=== PATIENT | female | born 1960 | race Caucasian/White ===

== ENCOUNTER → 2021-12-29 10:57 | Outpatient (CLI) | payer BC, SELFPAY ==
--- NOTE | ~2021-12-29 | XR_ITS ---
XR UGIAC w kub DATE: 12/29/2021 13:37 INDICATION: Gastroesophageal reflux TECHNIQUE: Air-contrast upper gastrointestinal series 1.9 minutes fluoroscopy time DAP 13.302 122 total images COMPARISON: None FINDINGS: There is normal deglutition and esophageal peristalsis. No stricture, mucosal fold thickeni ng, erosion, ulceration or intraluminal mass lesion of the esophagus, stomach or duodenum is detected . The proximal small bowel mucosal pattern appears normal. IMPRESSION: Normal examination Reviewed, dictated and finalized at [facility]. Reviewed, dictated and finalized at location B. IMPRESSION: Normal examination
== END ==
PROVIDERS: PCP Emergency Medicine; Visit Provider Emergency Medicine
DX: K21.9 Gastro-esophageal reflux disease without esophagitis (principal)
CPT/HCPCS: 74246

== ENCOUNTER → 2022-02-26 13:19 | Outpatient (CLI) | payer BC, SELFPAY ==
--- NOTE | ~2022-02-26 | XR_ITS ---
EXAMINATION: XR hand LT 2V, XR hand RT 2V DATE: 02/26/2022 13:56 INDICATION: Joint pain TECHNIQUE: 1. Posteroanterior and lateral views of the left hand were obtained. 2. Posteroanterior and lateral views of the right hand were obtained. COMPARISON: None. FINDINGS: Bone alignment is normal at both hands. No fractures. Relatively symmetric mild subarticular cystic c hange at the ulnar side of the proximal articular surfaces of the left and right lunate bones locatio n typically associated with ulnocarpal impaction of an ulnar variance appears neutral at both the lef t and right wrists. Polyarticular osteoarthritis, mild at the bilateral triscaphe and first carpal me tacarpal joints and minimally at multiple bilateral interphalangeal joints. No erosions to suggest in flammatory arthritis. IMPRESSION: 1. Minimal to mild polyarticular osteoarthritis with typical distribution of both hands, greatest at the radial aspect of the carpi and to lesser extent at the interphalangeal joints. 2. Mild cystic changes at the ulnar sides of the proximal articular surfaces of the left and right zhou nevin with distribution suggesting ulnocarpal impaction although ulnar variance is neutral bilaterally . Reviewed, dictated and finalized at location A. IMPRESSION: 1. Minimal to mild polyarticular osteoarthritis with typical distribution of candida th hands, greatest at the radial aspect of the carpi and to lesser extent at th e interphalangeal joints. 2. Mild cystic changes at the ulnar sides of the proximal articular surfaces of the left and right lunate with distribution suggesting ulnocarpal impaction al though ulnar variance is neutral bilaterally.
--- NOTE | ~2022-02-26 | XR_ITS ---
EXAMINATION: XR foot LT min 3V, XR foot RT min 3V DATE: 02/26/2022 13:56 INDICATION: Joint pain TECHNIQUE: 1. Dorsoplantar, two oblique and lateral views of the left foot were obtained. 2. Dorsoplantar, two oblique and lateral views of the right foot were obtained. COMPARISON: None. FINDINGS: Alignment is normal at both feet. No fracture. Minimal to mild osteoarthritis at the bilateral first metatarsophalangeal and a few tarsal metatarsal and interphalangeal joints. No erosions to suggest in flammatory arthritis. No periosteal reaction. Soft tissues are unremarkable. No ankle joint effusions . IMPRESSION: 1. Minimal to mild polyarticular osteoarthritis at the bilateral mid and forefoot. No acute osseous a bnormality. Reviewed, dictated and finalized at location A. IMPRESSION: 1. Minimal to mild polyarticular osteoarthritis at the bilateral mid and forefo ot. No acute osseous abnormality.
--- NOTE | ~2022-02-26 | XR_ITS ---
EXAMINATION: XR knee LT min 4V, XR knee RT min 4V DATE: 02/26/2022 13:57 INDICATION: Joint pain TECHNIQUE: 1. Weight bearing anteroposterior and Alcantar, sunrise, and flexed lateral views of the right knee were obtained. 2. Weight bearing anteroposterior and Alcantar, sunrise, and flexed lateral views of the left knee w ere obtained COMPARISON: None. FINDINGS: Alignment is normal at both knees. No fracture. Joint spaces are normal in all 3 compartments of bot h knees. No erosions or osteophytosis. Couple small bone islands in the proximal left tibia. No joint effusion/layering lipohemarthrosis. Soft tissues are unremarkable. IMPRESSION: 1. . Negative bilateral knee radiographs. Reviewed, dictated and finalized at location A. IMPRESSION: 1. . Negative bilateral knee radiographs.
--- NOTE | ~2022-02-26 | XR_ITS ---
EXAMINATION: XR elbow RT min 3V DATE: 02/26/2022 13:57 INDICATION: Joint pain TECHNIQUE: Anteroposterior, two oblique and lateral views of the right elbow were obtained. COMPARISON: None. FINDINGS: Alignment is normal. No fracture or joint effusion. Joint spaces are normal. Soft tissues are unremar kable. IMPRESSION: 1. Negative right elbow radiographs. Reviewed, dictated and finalized at location A.
--- NOTE | ~2022-02-26 | XR_ITS ---
EXAMINATION: XR elbow LT min 3V DATE: 02/26/2022 13:56 INDICATION: Joint pain TECHNIQUE: Anteroposterior, two oblique and lateral views of the left elbow elbow were obtained. COMPARISON: None. FINDINGS: Alignment is normal. No fracture or joint effusion. Joint spaces are normal. Soft tissues are unremar kable. IMPRESSION: 1. Negative left elbow radiographs. Reviewed, dictated and finalized at location A.
== END ==
PROVIDERS: PCP Emergency Medicine; Visit Provider Emergency Medicine
DX: M19.041 Primary osteoarthritis, right hand (principal); M19.042 Primary osteoarthritis, left hand; M19.071 Primary osteoarthritis, right ankle and foot; M19.072 Primary osteoarthritis, left ankle and foot
CPT/HCPCS: 73080; 73120; 73564; 73630

== ENCOUNTER → 2022-03-30 11:10 | Outpatient (CLI) | payer BC, SELFPAY ==
--- NOTE | ~2022-03-30 | DEXA_ITS ---
Bone Density Report Name: MOE CAMPBELL Age: 62 Sex: Female Ethnicity: White Date of : 1960 Indication: postmenopausal; screening for osteoporosis; height loss; Referring Provider: CHILO RODAS Study: Bone densitometry was performed. Exam Date: March 30, 2022 Accession number: [id number] Bone Density: Region BMD T-score Z-score Classification AP Spine (L1-L4) 0.790 -2.3 -0.7 Osteopenia Femoral Neck (Left) 0.586 -2.4 -1.0 Osteopenia Total Hip (Left) 0.748 -1.6 -0.5 Osteopenia Femoral Neck (Right) 0.589 -2.3 -0.9 Osteopenia Total Hip (Right) 0.774 -1.4 -0.3 Osteopenia Total Hip Mean 0.761 -1.5 -0.4 Osteopenia World Health Organization criteria for BMD impression classify patients as: Normal (T-score at or above -1.0), Osteopenia (T-score between -1.0 and -2.5), or Osteoporosis (T-score at or below -2.5). 10-year Fracture Risk(1): Major Osteoporotic Fracture 11% Hip Fracture 2.0% Reported Risk Factors: [place] (), Neck BMD=0.586, BMI=21.1 (1) FRAX(R) Version 3.08. Fracture probability calculated for an untreated patient. Fracture probability may be lower if the patient has received treatment. Clinical Information Provided by Patient: Has used the following medications: Vitamin D, Calcium Patient maximum height was 67 Menopause Age: 49 Drinks caffeinated beverages Onset of menses at age 13 Number of children 3 Impression: The patient has low bone mass, based on the Left Femoral Neck T-score. The patient has an estimated ten-year risk of hip fracture of 2% and an estimated ten-year risk of major fracture of 11%, based on the WHO FRAX algorithm. Discussion: BONE DENSITY IS LOW AT ONE OR MORE SKELETAL SITES. This patient's lowest T-score is low at one or more skeletal sites. It meets the World Health Organization's (WHO) criteria for ?low bone mass? (T-score between -1.0 and -2.5). The patient's 10-year risk of fracture as calculated by FRAX is less than the threshold where pharmacological therapy is recommended by the National Osteoporosis Foundation (NOF). However, all treatment decisions require clinical judgment and consideration of individual patient factors, including patient preferences, comorbidities, previous drug use, risk factors not captured in the FRAX model (e.g., frailty, falls, vitamin D deficiency, increased bone turnover, interval significant decline in bone density) and possible under or overestimation of fracture risk by FRAX. The patient should follow a healthful lifestyle (good nutrition with adequate calcium and vitamin D, and appropriate weight-bearing exercise). Follow-Up: Consider repeating this study in 2 to 3 years to reassess this patient's status, or sooner if there is some new clinical indication. Reported by: KAITY on 03/30/2022 11:24:00 AM. ____
== END ==
PROVIDERS: PCP Emergency Medicine; Visit Provider Emergency Medicine
DX: Z78.0 Asymptomatic menopausal state (principal); M85.88 Other specified disorders of bone density and structure, other site; M85.852 Other specified disorders of bone density and structure, left thigh; M85.851 Other specified disorders of bone density and structure, right thigh
CPT/HCPCS: 77080

== ENCOUNTER → 2022-11-04 15:03 | Outpatient (CLI) | payer BC, SELFPAY ==
--- NOTE | ~2022-11-04 | XR_ITS ---
EXAMINATION: XR chest 2V Exam Date/Time: 11/04/2022 15:38 CDT HISTORY: Acute Bronchitis Comparison: None available. RESULT: Lines, tubes, and devices: None. Lungs and pleura: Diffuse reticulonodular opacities. Bilateral posterior costophrenic angle blunting . Biapical pleural scarring. Cardiomediastinal silhouette: Mild arch calcification. Aortic unfolding. Other: No acute osseous or upper abdominal finding. Thoracolumbar scoliosis. Osteopenia. IMPRESSION: Pulmonary opacities may represent bronchiolitis, as can be seen with atypical infection, asthma, aspi ration, and small airways disease. Trace bilateral pleural effusions. Reviewed, dictated and finalized at location K. IMPRESSION: Pulmonary opacities may represent bronchiolitis, as can be seen with atypical i nfection, asthma, aspiration, and small airways disease. Trace bilateral pleura l effusions.
== END ==
PROVIDERS: PCP Emergency Medicine; Visit Provider Emergency Medicine
DX: J20.9 Acute bronchitis, unspecified (principal); R91.8 Other nonspecific abnormal finding of lung field
CPT/HCPCS: 71046

== ENCOUNTER → 2022-12-15 10:03 | Outpatient (CLI) | payer BC, SELFPAY ==
--- NOTE | ~2022-12-15 | XR_ITS ---
EXAM: XR hand LT 2V, XR hand RT 2V, XR wrist LT 2V, XR wrist RT 2V DATE: 12/15/2022 11:11 HISTORY: Multiple joint pain . COMPARISON: None available. FINDINGS: Decreased mineralization. No fracture or dislocation. No lytic or blastic lesion. Mild lula nt space narrowing and subchondral sclerosis in the interphalangeal joints of the fingers bilaterally , the bilateral first MCP joints and thumb interphalangeal joints, the bilateral triscaphe joints, an d bilateral metacarpal joints. Subchondral cysts in the proximal lunate bones bilaterally. No erosion or periosteal change. Mild soft tissue swelling over the ulnar styloids bilaterally. IMPRESSION: 1. Osteopenia. 2. Mild polyarticular arthritis, with radiographic features and distribution typical of osteoarthriti s. 3. Mild soft tissue swelling over the bilateral ulnar styloids which can reflect extensor carpi ulnar is pathology, as can occur with tendinopathy, tenosynovitis, and rheumatoid arthritis. Correlate with physical activity and laboratory findings. Reviewed, dictated and finalized at location K. IMPRESSION: 1. Osteopenia. 2. Mild polyarticular arthritis, with radiographic features and distribution ty pical of osteoarthritis. 3. Mild soft tissue swelling over the bilateral ulnar styloids which can reflec t extensor carpi ulnaris pathology, as can occur with tendinopathy, tenosynovit is, and rheumatoid arthritis. Correlate with physical activity and laboratory f indings. IMPRESSION: 1. Osteopenia. 2. Mild polyarticular arthritis, with radiographic features and distribution ty pical of osteoarthritis. 3. Mild soft tissue swelling over the bilateral ulnar styloids which can reflec t extensor carpi ulnaris pathology, as can occur with tendinopathy, tenosynovit is, and rheumatoid arthritis. Correlate with physical activity and laboratory f indings. IMPRESSION: 1. Osteopenia. 2. Mild polyarticular arthritis, with radiographic features and distribution ty pical of osteoarthritis. 3. Mild soft tissue swelling over the bilateral ulnar styloids which can reflec t extensor carpi ulnaris pathology, as can occur with tendinopathy, tenosynovit is, and rheumatoid arthritis. Correlate with physical activity and laboratory f indings.
--- NOTE | ~2022-12-15 | XR_ITS ---
EXAM: XR sacroiliac joints min 3V DATE: 12/15/2022 11:11 HISTORY: Multiple joint pain . COMPARISON: None available. FINDINGS: Decreased mineralization. No fracture or dislocation. No lytic or blastic lesion. Mild lula nt space narrowing and osteophytosis in the bilateral SI joints. No erosion or periosteal change. Pel armen phleboliths. Multiple surgical suni project over the lower pelvis. IMPRESSION: Osteopenia. Mild degenerative changes in the bilateral SI joints. Reviewed, dictated and finalized at location K.
--- NOTE | ~2022-12-15 | XR_ITS ---
EXAM: XR foot LT 2V, XR ankle RT 2V, XR ankle LT 2V, XR foot RT 2V DATE: 12/15/2022 11:11 HISTORY: Multiple joint pain . COMPARISON: None available. FINDINGS: Decreased mineralization. No fracture or dislocation. No lytic or blastic lesion. Mild lula nt space narrowing in the bilateral first MTP joints. Mild joint space narrowing narrowing and osteop hytosis in the bilateral tibiotalar joints No erosion or periosteal change. Small volume bilateral an kle fluid collections, slightly greater on the right. IMPRESSION: Osteopenia. Mild polyarticular osteoarthritis in the ankles and feet. Small bilateral ank le joint effusions. Reviewed, dictated and finalized at location K. IMPRESSION: Osteopenia. Mild polyarticular osteoarthritis in the ankles and fee t. Small bilateral ankle joint effusions. IMPRESSION: Osteopenia. Mild polyarticular osteoarthritis in the ankles and fee t. Small bilateral ankle joint effusions. IMPRESSION: Osteopenia. Mild polyarticular osteoarthritis in the ankles and fee t. Small bilateral ankle joint effusions.
== END ==
PROVIDERS: PCP Emergency Medicine; Visit Provider Nurse Practitioner Family
DX: R53.81 Other malaise (principal); M79.10 Myalgia, unspecified site; M85.88 Other specified disorders of bone density and structure, other site; M19.071 Primary osteoarthritis, right ankle and foot; M19.072 Primary osteoarthritis, left ankle and foot; M25.471 Effusion, right ankle; M25.472 Effusion, left ankle; M19.041 Primary osteoarthritis, right hand; M19.042 Primary osteoarthritis, left hand; M19.031 Primary osteoarthritis, right wrist; M19.032 Primary osteoarthritis, left wrist
CPT/HCPCS: 72202; 73100; 73120; 73600; 73620

== ENCOUNTER 2022-12-29 00:40 | Day surgery (SDC) | payer BC, SELFPAY ==
[2022-12-07 14:12] VITALS: BMI 19.6
--- NOTE | 2022-12-28 13:54 | P.PNAN_ITS ---
Anes - Initial Pre Proc Eval Procedure: Operation Date: 12/29/22 12:30 Proposed Procedures p Esophagogastroduodenoscopy & Colonoscopy - Mp Saxena MD Date/Time: 12/28/22 13:54 Surgeon: Mp Saxena MD Pre Op Diagnosis: abnormal weightloss, bloating, early satiety Patient Data Age: 62 Gender: F Height: 1.7 m Weight: 57 kg Allergies Allergy/AdvReac Type Severity Reaction Status Date / Time No Known Allergies Allergy Verified 12/29/22 11:35 Home Medications Medication Instructions Recorded Confirmed Type hydroxychloroquine 200 mg tablet 200 mg PO BID 12/07/22 12/29/22 History ibuprofen 200 mg tablet 600 mg PO TID PRN Pain 12/07/22 12/29/22 History magnesium 100 mg tablet 300 mg PO DAILY 12/07/22 12/29/22 History Patient hx anesthesia problems: none Family hx anesthesia problems: none Results Review: All pre-operative results and documents have been reviewed as part of the pre- operative evaluation. [facility] Past Medical History Medical History (Updated 12/29/22 @ 11:48 by Cong Gamble DO) Anemia Rheumatoid arthritis Social History Social History Smoking status: Never smoker Substance use: never Substance use type: does not use Living arrangements: with family Spiritual care concerns: No Anes - Eval Final PreProcedure Day of Procedure 12/28/22 13:54 Patient weight: normal Heart: regular rate and rhythm Lungs: clear to auscultation and normal air movement Airway: Mallampati scale class II Neurological: alert and oriented Last oral intake: >/= 8 hours ASA classification: II Emergent: no Anesthetic plan: proceed Anesthesia type and monitoring: general GIVS and standard monitoring Results Review: All pre-operative results and documents have been reviewed as part of the pre- operative evaluation. Informed Consent: The patient's anesthetic plan and its attendant risks and benefits were discussed with the patient/family/POA. Questions were solicited and answers provided to the satisfaction of the patient/family/POA.
[2022-12-29 11:23] VITALS: BP 128/80; PULSE 87; RESP 18; TEMP 36.2; O2SAT 100; BMI 18.6
[2022-12-29] MEDS: LACTATED RINGERS 1,000 ML 150 ML IV CONT (11:45)
[2022-12-29] MEDS: BENZOCAINE (*SP) 60 ML SPRAY CAN (HURRICAINE) 1 SPRAY MUCOUS MEM (12:14)
--- NOTE | 2022-12-29 12:14 | PM.HPGS ---
History of Present Illness History of Present Illness Consent: Risks, benefits, and alternatives have been discussed and questions answered. Patient agrees to proceed with procedure. Chief complaint: abnormal weightloss, bloating, early satiety Narrative: Lisy Medrano is a 62 year old female here with mild anemia and weight loss, never had scopes, denies overt gib Review of Systems Constitutional: Constitutional: Denies headache(s) and Denies weakness Eyes: Eyes: Denies blurry vision ENT: Reports Normal hearing present, Denies headache(s) and Denies neck pain Cardiovascular: Cardiovascular: Denies chest pain and Denies dyspnea Respiratory: Respiratory: Denies dyspnea Gastrointestinal: Gastrointestinal: Reports no additional gastrointestinal complaints Genitourinary: Genitourinary: Denies dysuria Musculoskeletal: Musculoskeletal: Denies neck pain Integumentary/Breasts: Skin/Breast: Denies dry skin Neurologic: Reports Normal hearing present, Denies headache(s) and Denies weakness Psychiatric: Psychiatric: Denies anxiety Endocrine: Endocrine: Denies change in body appearance Hematologic/Lymphatic: Hematologic/Lymphatic: Denies easy bleeding Allergic/Immunologic: Allergic/Immunologic: Denies urticaria PMFSH Past Medical History Medical History (Updated 12/29/22 @ 12:15 by Mp Saxena MD) Anemia Rheumatoid arthritis Weight loss Social History Social History Smoking status: Never smoker Substance use: never Substance use type: does not use Living arrangements: with family Spiritual care concerns: No Meds Home Medications and Allergies Home Medications Medication Instructions Recorded Confirmed Type hydroxychloroquine 200 mg tablet 200 mg PO BID 12/07/22 12/29/22 History ibuprofen 200 mg tablet 600 mg PO TID PRN Pain 12/07/22 12/29/22 History magnesium 100 mg tablet 300 mg PO DAILY 12/07/22 12/29/22 History Allergies Allergy/AdvReac Type Severity Reaction Status Date / Time No Known Allergies Allergy Verified 12/29/22 11:35 Vital Signs Vital Signs - 24 hr 12/29/22 11:23 Temperature 97.2 F L Pulse Rate 87 Respiratory Rate 18 Blood Pressure 128/80 Pulse Oximetry 100 Oxygen Delivery Room Air Exam Const: General: comfortable and no acute distress HENMT: Face/Nose/Sinus: Normal nares present Eyes: General: appearance normal, both eyes and all related structures Neck: Neck: no JVD Resp: Auscultation: clear to auscultation bilaterally Cardio: Rate: regular rate Rhythm: regular rhythm GI: Inspection: non-distended GI Palp: Yes Soft to palpation Skin: General skin exam: normal color Neuro: General: gait normal Speech: normal speech Extrem: General: normal to inspection Psych: Mental Status: mental status grossly normal Assessment and Plan Assessment and plan (1) Weight loss: Code(s): R63.4 - Abnormal weight loss Status: Acute Assessment and Plan: egd and colonoscopy (2) Anemia: Code(s): D64.9 - Anemia, unspecified Status: Acute
--- NOTE | 2022-12-29 12:38 | SUR.OPER ---
EGD START: 1218; END: 1222. COLONOSCOPY START: 1227; END: 1237.
[2022-12-29 12:42] VITALS: BP 107/71; PULSE 77; RESP 16; O2SAT 100
[2022-12-29 12:52] VITALS: BP 113/79; PULSE 73; RESP 20; O2SAT 100
[2022-12-29 13:02] VITALS: BP 124/73; PULSE 76; RESP 20; O2SAT 100
== END 2022-12-29 13:13 | disposition home or self-care (01) ==
PROVIDERS: PCP Emergency Medicine; Visit Provider Internal Medicine Gastroenterology
PROC: 0DJ08ZZ Inspection of Upper Intestinal Tract, Via Natural or Artificial Opening Endoscopic (ICD-10-PCS; CPT 43235; principal; 2022-12-29 12:30)
DX: Z12.11 Encounter for screening for malignant neoplasm of colon (principal); K63.5 Polyp of colon; K64.8 Other hemorrhoids; R63.4 Abnormal weight loss; D64.9 Anemia, unspecified; M06.9 Rheumatoid arthritis, unspecified; Z68.1 Body mass index [BMI] 19.9 or less, adult
CPT/HCPCS: 45378; 43239; 88305; J2704; J7120